=== PATIENT | male | born 2000 | race Caucasian/White ===

== ENCOUNTER 2021-05-12 21:36 | Emergency (ER) | payer SELFPAY ==
--- NOTE | 2021-05-12 22:50 | Emergency Department Report ---
ED Upper Extremity Inj HPI - General Chief Complaint: Extremity Injury, Upper Stated Complaint: CUT THUMB Source: patient Mode of arrival: Ambulatory Limitations: No Limitations - History of Present Illness Initial Comments: Patient is a 20-year-old male with no past medical history presents to the ED with complaint of acute onset persistent distal left thumb laceration wound a fter he accidentally cut his left arm while slicing fruit about 4 hours ago. Patient states that the pain is constant and persistent and that the bleeding is not well controlled. Patient denies lightheadedness, numbness and tingling or weakness of left arm and left hand, dizziness, fall, nausea and vomiting or syncope. MD Complaint: Injury to:: left, finger (thumb laceration) -: Sudden, hour(s) (4) Other Extremity Injury: Fingers: Left (left thumb laceration) Other Injuries: none Handedness: left Place: home Severity scale (0 -10): 7 Improves With: none Worsens With: movement of extremity Context: laceration (left thumb laceration) Associated Symptoms: denies other symptoms. denies: weakness, numbness, neck pain, suspects foreign body, nausea/vomiting Treatments Prior to Arrival: bandage - Related Data Previous Rx's Medication Instructions Recorded Last Taken Type Ibuprofen [Motrin] 800 mg PO Q8HR PRN #30 tablet 05/12/21 Unknown Rx cephALEXin [Keflex] 500 mg PO Q8HR #30 cap 05/12/21 Unknown Rx Allergies Allergy/AdvReac Type Severity Reaction Status Date / Time No Known Allergies Allergy Unverified 05/12/21 22:18 ED Review of Systems ROS: Stated complaint: CUT THUMB Other details as noted in HPI Constitutional: denies: chills, fever Eyes: denies: eye pain, eye discharge, vision change ENT: denies: ear pain, throat pain Respiratory: denies: cough, shortness of breath, wheezing Cardiovascular: denies: chest pain, palpitations Endocrine: no symptoms reported Gastrointestinal: denies: abdominal pain, nausea, vomiting, diarrhea Genitourinary: denies: urgency, dysuria Musculoskeletal: arthralgia (left thumb pain due to a bleeding laceration wound). denies: back pain, joint swelling Skin: other (left thumb laceration wound). denies: rash, lesions Neurological: denies: headache, weakness, paresthesias Psychiatric: denies: anxiety, depression Hematological/Lymphatic: denies: easy bleeding, easy bruising ED Past Medical Hx - Medications Home Medications: Home Medications Medication Instructions Recorded Confirmed Last Taken Type Ibuprofen [Motrin] 800 mg PO Q8HR PRN #30 tablet 05/12/21 Unknown Rx cephALEXin [Keflex] 500 mg PO Q8HR #30 cap 05/12/21 Unknown Rx ED Physical Exam - General Limitations: No Limitations General appearance: alert, in no apparent distress - Head Head exam: Present: atraumatic, normocephalic, normal inspection - Eye Eye exam: Present: normal appearance, PERRL, EOMI Pupils: Present: normal accommodation - ENT ENT exam: Present: normal exam, normal orophraynx, mucous membranes moist, TM's normal bilaterally, normal external ear exam - Neck Neck exam: Present: normal inspection, full ROM. Absent: tenderness - Respiratory Respiratory exam: Present: normal lung sounds bilaterally. Absent: respiratory distress, wheezes, rales, rhonchi, chest wall tenderness, accessory muscle use, decreased breath sounds, prolonged expiratory - Cardiovascular Cardiovascular Exam: Present: regular rate, normal rhythm, normal heart sounds. Absent: systolic murmur, diastolic murmur, rubs, gallop - GI/Abdominal GI/Abdominal exam: Present: soft, normal bowel sounds. Absent: tenderness, guarding, rebound, hyperactive bowel sounds, hypoactive bowel sounds, organomegaly - Extremities Exam Extremities exam: Present: normal inspection, full ROM, tenderness (Palpable left thumb laceration due to a bleeding 3 cm laceration wound), normal capillary refill - Back Exam Back exam: Present: normal inspection, full ROM. Absent: tenderness, CVA ten derness (R), CVA tenderness (L), muscle spasm, vertebral tenderness - Neurological Exam Neurological exam: Present: alert, oriented X3, CN II-XII intact, normal gait, reflexes normal - Psychiatric Psychiatric exam: Present: normal affect, normal mood - Skin Skin exam: Present: warm, dry, intact, normal color, other (Bleeding 3 cm laceration wound on distal left thumb). Absent: rash ED Course Vital Signs 05/12/21 05/12/21 21:43 23:20 Temperature 98.6 F 98.3 F Pulse Rate 79 64 Respiratory 16 16 Rate Blood Pressure 114/76 Blood Pressure 122/74 [Right] O2 Sat by Pulse 98 100 Oximetry - Laceration /Wound Repair Left Plantar Finger Wound Location: upper extremity (left thumb laceration on plantar surface) Wound Length (cm): 3 Wound's Depth, Shape: superficial, linear Wound Explored: contaminated Irrigated w/ Saline (ccs): 200 Betadine Prep?: Yes Anesthesia: 1% Lidocaine Volume Anesthetic (ccs): 6 Wound Debrided: extensive Wound Repaired With: sutures Suture Size/Type: 4:0, proline Number of Sutures: 6 Layer Closure?: No Sterile Dressing Applied?: Yes Progress: The left thumb was cleaned extensively and the wound debrided with normal saline. Lidocaine 1% solution was used as a local anesthetic. When anesthesia was fully achieved, the wound was sutured per protocol using Prolene 4 sutures for a total of 6 sutures. The wound was then dressed appropriately after cleaning with normal saline. The wound was dressed with 4 x 4 gauzes and Kerlix. Patient tolerated the procedure well. Patient was therefore discharged home on pain medications and prophylactic antibiotics and advised return to the ED immediately if symptoms get worse. Patient was also advised to follow-up with his primary care physician in 7 to 10 days for reevaluation. Patient was otherwise advised return to the ED or to his primary care physician in 12 to 14 days for suture removal. ED Medical Decision Making - Medical Decision Making This is a 20-year-old male with no past medical history presents to the ED with complaint of acute onset persistent distal left thumb laceration wound after he accidentally cut his left arm while slicing fruit about 4 hours ago. Patient states that the pain is constant and persistent and that the bleeding is not well controlled. In the ED, patient is alert and oriented x3 and is not in any distress. Patient was treated for pain in the ED and the left thumb was cleaned extensively and the wound debrided with normal saline. Lidocaine 1% solution was used as a local anesthetic. When anesthesia was fully achieved, the wound was sutured per protocol using Prolene 4 sutures for a total of 6 sutures. The wound was then dressed appropriately after cleaning with normal saline. The wound was dressed with 4 x 4 gauzes and Kerlix. Patient tolerated the procedure well. Patient was therefore discharged home on pain medications and prophylactic antibiotics and advised return to the ED immediately if symptoms g et worse. Patient was also advised to follow-up with his primary care physician in 7 to 10 days for reevaluation. Patient was otherwise advised return to the ED or to his primary care physician in 12 to 14 days for suture removal. - Differential Diagnosis Thumb laceration; thumb puncture wound; finger injury Critical care attestation.: If time is entered above; I have spent that time in minutes in the direct care of this critically ill patient, excluding procedure time. ED Disposition Clinical Impression: Laceration of left thumb without complication Qualifiers: Encounter type: initial encounter Qualified Code(s): S61.012A - Laceration without foreign body of left thumb without damage to nail, initial encounter Puncture wound of left thumb w/o foreign body w/o damage to nail Qualifiers: Encounter type: initial encounter Qualified Code(s): S61.032A - Puncture wound without foreign body of left thumb without damage to nail, initial encounter Disposition: HOME / SELF CARE / HOMELESS Is pt being admited?: No Does the pt Need Aspirin: No Condition: Stable Instructions: Puncture Wound, [id number], Laceration Care, Adult, [id number], Sutured Wound Care, [id number] Additional Instructions: Take medications with food, drink plenty of fluids and follow up with your Primary care physician in 7-10 days for reevaluation. Return to the ED immediately if symptoms get worse. Otherwise return to the ED or to your physician in 12-14 days for suture removal. Prescriptions: cephALEXin [Keflex] 500 mg PO Q8HR #30 cap Ibuprofen [Motrin] 800 mg PO Q8HR PRN #30 tablet PRN Reason: Pain , Severe (7-10) Referrals: [facility] [Provider Group] - 7-10 days Time of Disposition: 22:46 Print Language: SERBIAN
[2021-05-12] MEDS ORDERED: LIDOCAINE (1%) 10 MG/1 ML VIAL 20 ML MDV INFILTRATI ONE (23:12)
[2021-05-12] MEDS ORDERED: TETANUS,DIPH,PERTUSS(ACELL) VACCINE 0.5 ML SYRINGE IM ONE (23:12)
[2021-05-12] MEDS ORDERED: IBUPROFEN 600 MG TAB PO ONE (23:13)
[2021-05-12 23:22] VITALS: BP 122/74
== END 2021-05-12 23:22 | disposition home or self-care (01) ==
LOC: ED 21:36
DX: S61.012A Laceration without foreign body of left thumb without damage to nail, initial encounter (principal); W26.8XXA Contact with other sharp object(s), not elsewhere classified, initial encounter; Y93.89 Activity, other specified; Y92.89 Other specified places as the place of occurrence of the external cause; Y99.8 Other external cause status
CPT/HCPCS: 12002; 90471; 90715; 99282; J3490